=== PATIENT | female | born 1945 ===

== ENCOUNTER 2022-08-09 11:07 | Outpatient (REF) | payer MEDICARE, OTHER, SELFPAY | END 2022-08-09 11:08 | disposition home or self-care (01) | LOC: HO.SH 11:07 | PROVIDERS: Visit Provider Family Medicine | DX: H90.3 Sensorineural hearing loss, bilateral (principal) | CPT/HCPCS: 92557 ==

== ENCOUNTER 2022-09-04 14:23 | Outpatient (REF) | payer SELFPAY ==
--- NOTE | 2022-09-04 16:09 | MHC.AU.MED ---
Medical Clearance for Hearing Instrumentation Date: 09/04/22 Patient Name: Maia Siddiqui Date of : 1945 Primary Care Provider: Evert Brooke MD We have seen your patient on 09/04/22 and have determined that they are a candidate for amplification (See accompanying report). Specifically, they would benefit from: Hearing aid use in both ears There is a statute that addresses Medical Evaluation Requirements prior to fitting a patient with a hearing aid. According to [place] statute 265 CMR:6.03(1), (a) General. Except as provided in 265 CMR 6.03(1)(b), a jewel gauger shall not sell a hearing aid unless the prospective user has presented to the jewel gauger a written statement signed by a licensed physician that states that the patient's hearing loss has been medically evaluated and the patient may be considered a candidate for a hearing aid. The medical evaluation must have taken place within the preceding six months. Please note: Due to the [place] Statute referenced above, we cannot accept a signature other than that of a licensed physician. EMBEDDED PROCESSOR and PA signatures cannot be accepted. I am in agreement with the above recommendation. There is no medical contraindication for hearing instrumentation. Physician Signature Date Physician Name (Printed)
--- NOTE | 2022-09-05 11:25 | MHC.AU.HA1 ---
Hearing Aid Evaluation Date of Visit: 09/04/22 Historical Information: Description of Hearing: Right Ear - Within normal sloping to moderately-severe sensorineural hearing loss Left Ear - Mild sloping to moderately-severe sensorineural hearing loss Summary: Maia is accompanied by her . She is ready to pursue amplification due to increasing difficulty understanding full conversations. She is primarily home with her ; however, she also has an active social life. She often socializes with her extended family including her grandchildren, goes out to restaurants, attends dinner parties with about eight people and exercise classes with about 27 people. She also enjoys going to concerts and participates in Zoom meetings. Maia is interested in [employer]'s new Real hearing aids as recommended by her friend who is an rn neonatal in the [facility]. Hearing Aid Prescription: Based on the individual?s shared listening needs, communication environments, dexterity, desire for connectivity, and personal preferences, the following prescription for amplification has been made: Right ear: Make, Model, Color: Oticon Real 2 miniRITE-R Color: Silver Wright Battery Size: Rechargeable Ginning Operator/Slim Tube: 3/85 Type of Earmold/Dome/CShell/SlimTip: 8 mm double buck dome Left ear: Left ear prescription to be same as Right Hearing Aid above: Masoud Model, Color: Oticon Real 2 miniRITE-R Color: Silver Wright Battery Size: Rechargeable Ginning Operator/Slim Tube: 3/85 Type of Earmold/Dome/CShell/SlimTip: 8 mm double buck dome Plan of Care: Patient wishes to purchase hearing aids as prescribed Action Taken/Action Needed: Medical Clearance to be requested from PCP/ENT. Hearing Instrument Fitting to be scheduled when materials arrive Primary Diagnosis: H90.3 Bilateral Sensorineural Hearing Loss Signature: Provider: Acacai Daly, [facility]
== END 2022-09-04 14:24 | disposition home or self-care (01) ==
LOC: HO.HAP 14:23
PROVIDERS: Visit Provider Internal Medicine
DX: Z46.1 Encounter for fitting and adjustment of hearing aid (principal); H90.3 Sensorineural hearing loss, bilateral
CPT/HCPCS: 92590

== ENCOUNTER 2022-10-04 14:04 | Outpatient (REF) | payer SELFPAY ==
--- NOTE | 2022-10-04 16:39 | MHC.AU.HA2 ---
Hearing Instrument Fitting- Adult- Binaural Date of Visit: 10/04/22 Hearing Instruments Dispensed: Right Ear: Make, Model, Color, Serial Number: Oticon Real 2 miniRITE-R Color: Silver Wright [id number] Paper Cup Handle Machine Operator Repair Warranty: 10/07/2025 Paper Cup Handle Machine Operator Loss and Damage Warranty: 10/07/2025 [facility] Service Plan: 10/04/2025 Battery Size: Rechargeable Christmas Tree Grader/Slim Tube: 3/85 Earmold/Dome/CShell/SlimTip: 10mm open buck dome Type of Wax Guard: Prowax minifit Left Ear: Make, Model, Color, Serial Number: Oticon Real 2 miniRITE-R Color: Silver Wright [id number] Paper Cup Handle Machine Operator Repair Warranty: 10/07/2025 Paper Cup Handle Machine Operator Loss and Damage Warranty: 10/07/2025 [facility] Service Plan: 10/04/2025 Battery Size: Rechargeable Christmas Tree Grader/Slim Tube: 3/85 Earmold/Dome/CShell/SlimTip: 10mm open buck dome Type of Wax Guard: Prowax minifit Accessories/Assistive Technology: Smartcharger SN: [id number] (warranty 10/07/2025) Web Page Designer SN: [id number] (warranty 10/07/2025) Summary of Fitting: Maia is here for a hearing aid fitting, accompanied by her Tonio. The hearing aids were programmed to her most recent audiogram, on adaptation level 3, VAC+. Real ear measurements reveal the hearing aids are functioning and meeting targets appropriately. Maia reported a comfortable fit and good volume bilaterally. We discussed the adaptation period and the importance of consistent hearing aid use at length. Reviewed care and use of the hearing aids and chargers. Reviewed manuals. The patient was able to manipulate, insert and remove the hearing aids after some practice. She prefers to wait until her follow-up to pair her hearing aids to her iPhone. Reviewed the purchase agreement and provided the patient with a signed copy. $4,599 paid today (rechargeable hearing aids + service plan). A follow-up is scheduled. Diagnosis Code(s): Primary Diagnosis: H90.3 Bilateral Sensorineural Hearing Loss Signature: Provider: Cliff Charles, [facility]
== END 2022-10-04 14:05 | disposition home or self-care (01) ==
LOC: HO.HAP 14:04
PROVIDERS: Visit Provider Family Medicine
DX: Z46.1 Encounter for fitting and adjustment of hearing aid (principal); H90.3 Sensorineural hearing loss, bilateral
CPT/HCPCS: V5261; V5299

== ENCOUNTER 2022-10-26 10:51 | Outpatient (REF) | payer SELFPAY ==
--- NOTE | 2022-10-26 14:09 | MHC.AU.HFU ---
Hearing Instrument Follow-Up- Binaural Date of Visit: 10/26/22 Right Ear: Oticon Real 2 miniRITE-R Color: Silver Wright [id number] Repair Warranty: 10/07/2025 Loss and Damage Warranty: 10/07/2025 Service Plan: 10/04/2025 Battery Size: Rechargeable Torch Straightener: 385 Type of Dome: 10mm open buck dome Type of Wax Guard: Prowax minifit Dispensed By: [facility] Date of Fittin10/04/2022 Left Ear: Oticon Real 2 miniRITE-R Color: Silver Wright [id number] Repair Warranty: 10/07/2025 Loss and Damage Warranty: 10/07/2025 Service Plan: 10/04/2025 Battery Size: Rechargeable Torch Straightener: Type of Dome: 10mm open buck dome Type of Wax Guard: Prowax minifit Dispensed By: [facility] Date of Fittin10/04/2022 Follow-Up Summary: Maia was seen today for a hearing aid check following her hearing aid fitting. She is accompanied by her . Maia reports improved hearing and is very happy with her hearing aids. No retention issues reported. She did have a few instances where having a volume control would have been helpful, like when she went to [employer] and the child day care teacher was too loud and when she went to a [employer] and the music was too loud. She also notes the microwave ding is rather loud at home. Maia prefers to have the volume control enabled on her hearing aids as she does not want them paired to her iPhone yet. In Genie[employer] I enabled volume control, increased easy noise suppression and increased sudden sound stabilizer. I spent time reviewing use of the volume control, which we practiced in office and she was able to manipulate with ease. We also spent time reviewing hearing aid cleaning and changing the domes/wax guards. Maia mentioned she may have scratched her left ear canal as she noted some blood on a Qtip. Otoscopy reveals a scab in the left ear canal which seems to be healing. She inquired about purchasing a TV adaptor (version 3). I encouraged her to try her new hearing aid settings and volume control before making a decision. Quoted $220 for the TV adaptor. She will call if she wants to order it. She prefers to contact our clinic for additional follow-up as needed. Recommended annual audiogram and hearing aid check. Diagnosis Code(s): Primary Diagnosis: H90.3 Bilateral Sensorineural Hearing Loss Signature: Provider: Cliff Charles, CCC-A
== END 2022-10-26 10:52 | disposition home or self-care (01) ==
LOC: HO.HAP 10:51
PROVIDERS: Visit Provider Family Medicine
DX: Z13.89 Encounter for screening for other disorder (principal)

== ENCOUNTER 2024-09-22 09:42 | Outpatient (REF) | payer MEDICARE, OTHER, SELFPAY | END 2024-09-22 09:43 | disposition home or self-care (01) | LOC: HO.SH 09:42 | PROVIDERS: Visit Provider Family Medicine | DX: Z01.118 Encounter for examination of ears and hearing with other abnormal findings (principal); H90.3 Sensorineural hearing loss, bilateral | CPT/HCPCS: 92557 ==

== ENCOUNTER 2024-09-22 09:45 | Outpatient (REF) | payer SELFPAY ==
--- OUTSIDE RECORDS SUMMARY | 2024-09-23 12:01 | XMS_ITS | Patient Health Record ---
Author Organization [facility] Address [address] [place] [address] Care Team Providers Care Shipping And Receiving Operator Name Role Phone Aries Sibley MD Primary Care Provider Ninoska Garcia Unavailable [phone] Allergies Allergen (clinical drug ingredient) Drug/Non Drug Allergy documented on EMR Reaction Allergy Type Onset Date Status cefaclor ceclor (uncoded) itching Allergy Act vasu sulfamethoxazole / trimethoprim Bactrim hives, swelling Drug Allergy Active Ceftin itching Drug Allergy Active Keflex itching Drug Allergy Active gabapentin Neurontin twitching Drug Allergy Active cephalexin Cephalexin itching Drug Allergy Activ e Reason For Referral No Information Medications Medication SIG (Take, Route, Frequency, Duration) Notes Start Date End Date Status Vitamin D3 Active Calcium Citrate Acti ve Multivitamin Active Aspirin Active Ibuprofen Active Sertraline HCl Activ e Turmeric Active Irbesartan 75 MG 1 tablet Orally Active Loratadine Active Simvastatin 40 MG 1 tablet in the evening Orally Once a day for 30 day(s) Active Fish Oil Active Reclast Active Amoxicillin PRN for dental apts Active ALPRAZolam 0.25 MG 1 tablet Orally Twice a day PRN Active L-Methylfolate 15 MG 1 tablet Orally Once a day for 30 day(s) Active Curcumin 95 Active Vitamin D Not-Taking Immunizations Vaccine Route Administration Date Status Comme nts COVID-19 Pfizer BioNTech Vaccine Unknown 08/03/2020 Administered Second Dose: 08/24/2020 Social History Tobacco Use: Social History Observation Description Date Details (start date - stop date) Never Smoker NA - NA Tobacco Use/Smoking Question Answer Notes Are you a: nonsmoker Additional Findings: Tobacco Non-User Current no n-smoker Alcohol Screen Question Answer Notes Did you have a drink containing alcohol in the p ast year? Yes Points 0 Interpretation Negative Tobacco use other than smoking: Question Answer Notes Are you an other tobacco user? No Problems Problem Type SNOMED Code ICD Code Onset Dates Problem Status W/U Status Risk Notes Problem [id number] Hallux valgus (acquired), right foot (M20.11) Active confirmed Problem 148313383 Hammer toe of right foot (M20.41) Active confirmed Plan Of Treatment Pending Test Test Name Order Date X ray : Foot, right 3V 10/15/2020 Insurance Providers Payer Name Payer Address Payer Phone Subscriber Number Group Number Insured Name Patient Relationship to Insured Coverage Start Date Coverage End Date Medicare National Govt [employer] [address] [place] [address] [id number] Maia Siddiqui Self - patient is the insured [facility] [address] [place] [phone] [id number] Maia Siddiqui Self - patient is the insured Medical (General) History Medical History History ICD Code Anxiety Arthritis Back,Hip,and Knee pain Broken bones Cancer Depression High blood pressure Osteoporosis Measles Mumps Chicken pox Joint implants/screws Cholesterol Lymphedema, axilla vascular insufficiency Varicose veins Compression stockings, 20-30 Surgical History Surgery Date(Month/Year) left knee replacement 03/2018 right knee replacement 09/2017 endovenous laser treatments 2018 lumpectomy, right 2009 cataracts 2009 lumpectomy, left 1988
--- OUTSIDE RECORDS SUMMARY | 2024-09-23 12:01 | XMS_ITS | Continuity of Care Document ---
Author Organization [facility] Address [address] [place] [address]- Care Team Providers Care Field Laborer Name Role Phone Maryjo COELLO, Aries Lauren Primary Care Physician En[place] [facility] Date(s): 08/20/24 - 09/19/24 [facility] Adult [address] [place] [address]- Encounter Type: Triage Allergies, Adverse Reactions, Alerts Substance Criticality Severity Reaction Reaction Severity Status ciprofloxacin Itching Rash Active sulfADIAZINE Swelling Hives Active cephalexin RASH Active lisinopril Cough Active gabapentin Active Macrobid Active Macrodantin Active Flonase Rash Itching Active Indocin Active Clinoril SIMPSON - Headache Active Levaquin Active Tolectin 600 Active Prevnar fever Active Immunizations Given and Recorded Vaccine Date Status Refusal Reason RSV vaccine, preF A-preF B, recombinant 03/02/24 R ecorded influenza virus vaccine, inactivated 03/02/24 Bhavesh rded influenza virus vaccine, inactivated 1 05/18/23 Gi maddie influenza virus vaccine, inactivated 04/28/22 Bhavesh rded influenza virus vaccine, inactivated 04/17/21 Bhavesh rded influenza virus vaccine, inactivated 03/27/20 Bhavesh rded influenza virus vaccine, inactivated 2 03/08/18 Re corded influenza virus vaccine, inactivated 3 03/08/18 Re corded influenza virus vaccine, inactivated 4 04/10/17 Gi maddie influenza virus vaccine, inactivated 05/20/16 Bhavesh rded influenza virus vaccine, inactivated 5 04/15/16 Re corded influenza virus vaccine, inactivated 05/25/14 Bhavesh rded influenza virus vaccine, inactivated 05/24/13 Bhavesh rded influenza virus vaccine, inactivated 04/15/13 Bhavesh rded influenza virus vaccine, inactivated 04/11/11 Give n influenza virus vaccine, inactivated 04/05/10 Give n influenza virus vaccine, inactivated 04/06/09 Give n influenza virus vaccine, inactivated 6 04/12/08 Gi maddie SARS-CoV-2(COVID-19)mRNA-LNP vac([id number]) 03/02/24 Recorded SARS-CoV-2(COVID-19)mRNA-LNP vac([id number]) 03/25/23 Recorded [id number] bivalent booster vax 10/22/22 Recorded [id number] bivalent booster vax 03/13/22 Recorded SARS-CoV-2 mRNA ([id number]) vax 10/29/21 Recorded SARS-CoV-2 (COVID-19) mRNA BNT-162b2 vac 04/03/21 Recorded SARS-CoV-2 (COVID-19) mRNA BNT-162b2 vac 08/24/20 Given SARS-CoV-2 (COVID-19) mRNA BNT-162b2 vac 08/03/20 Recorded Influenza Virus Vaccine (oldterm) 04/29/19 Recorde d zoster vaccine, inactivated 12/28/18 Recorded zoster vaccine, inactivated 12/10/18 Recorded zoster vaccine, inactivated 09/09/18 Recorded Influenza Vaccine (oldterm) 7 04/03/15 Recorded pneumococcal 13-valent vaccine 02/12/15 Given tetanus/diphtheria/pertussis, acel(Tdap) 8 10/28/12 Given FluLaval (oldterm) 9 04/29/12 Given Zoster Vaccine Live 01/31/12 Recorded Pneumococcal Vaccine (oldterm) 10 05/02/03 Given tetanus-diphtheria toxoids (Td) 11 04/02/02 Given 1Result Comment: QUESTIONAIRE COMPLETE 2[facility] 4Result Comment: [04/10/2017] [facility] [phone] 5Location History: pharmacy 6Admin Note: nadia ceja 7[facility] History[facility] 8Admin Note: Gave the VIS 07-25-2011 9Admin Note: Gave the VIS 01-01-2012 10[facility] 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[employer] Medications acetaminophen 500 mg oral capsule 2 capsule, By Mouth, 4 times a day, PRN as needed for fever/pain, 0 Refills, Maintenance, 10/04/10 4:01:05 PM EDT, Capsule Start Date: 10/04/10 Status: Ordered Repeat number: 1 alendronate 70 mg oral tablet 1 tablet = 70 mg, By Mouth, Every week, with 6-8 oz plain water, at least 30 minutes before first food, beverage, or medication of the day, # 12 tablet, 3 Refills, Maintenance, 12/04/23 10:01:00 AM EDT, Tablet, [facility]/pharmacy #[id number], 153.5, cm, 12/04/23 9:36:00 EDT, Height, 79, kg, 09/19/22 13:01:00 EDT, Dry Weight Start Date: 12/04/23 Status: Ordered Quantity: 12.0 Unit: tablet Repeat number: 4 Indication: Age-related osteoporosis without current pathological fracture ALPRAZolam 0.5 mg oral tablet 15 each, 0 Refill(s), TAKE 1/2 A TABLET BY MOUTH AT BEDTIME NEEDED, Refills 0, 12/04/23 9:43:00 AMEDT, Partial fill upon patient request if the prescription is for a schedule II opioid drug. Start Date: 12/04/23 Status: Ordered Repeat number: 1 aspirin 81 mg oral enteric coated tablet 81 mg, 1, tablet, By Mouth, Daily, 0 Refills Start Date: 06/01/06 Status: Ordered Repeat number: 1 Benefiber oral powder for reconstitution 5 mL, By Mouth, 2 times a day, PRN as needed for constipation, # 155 Gm, 0 Refills, Maintenance, 10/31/21 3:17:00 PM EDT, REC Powder, Partial fill upon patient request if the prescription is for a schedule II opioid drug. Start Date: 10/31/21 Status: Ordered Quantity: 155.0 Unit: g Repeat number: 1 calcium (as carbonate and lactate)-vitamin D 200 mg-250 intl units oral tablet, chewable 1 tablet, Chew, Daily, # 100 tablet, 0 Refills, Maintenance, 07/26/17 1:18:26 PM EST, Chew Tablet Start Date: 07/26/17 Status: Ordered Quantity: 100.0 Unit: tablet Repeat number: 1 Cholecalciferol oral, 0 Refill(s), Take by mouth., 0 Refills, 12/04/23 9:43:00 AM EDT, Partial fill upon patient request if the prescription is for a schedule II opioid drug. Start Date: 12/04/23 Status: Ordered Repeat number: 1 cholecalciferol 1000 intl units oral capsule 2000 Unknown, oral, 0 Refill(s), Take 2 capsules (2,000 Units total) by mouth., 0 Refills, 12/04/23 9:43:00 AM EDT, Partial fill upon patient request if the prescription is for a schedule II opioid drug. Start Date: 12/04/23 Status: Ordered Repeat number: 1 Collagen 0 Refills, Maintenance, 05/31/23 10:01:00 AM EST, Partial fill upon patient request if the prescription is for a schedule II opioid drug. Start Date: 05/31/23 Status: Ordered Repeat number: 1 Deplin 15 mg oral capsule 1 capsule = 15 mg, By Mouth, Daily, 0 Refills, Maintenance, 08/20/15 1:18:42 PM EST Start Date: 08/20/15 Status: Ordered Repeat number: 1 dexamethasone-tobramycin 0.1%-0.3% ophthalmic suspension 5 mL, 0 Refill(s), INSTILL 1 DROP INTO BOTH EYES FOUR TIMES A DAY USE FOR 2 WEEKS THEN STOP, 0 Refills, 12/04/23 9:43:00 AM EDT, Partial fill upon patient request if the prescription is for a schedule II opioid drug. Start Date: 12/04/23 Status: Ordered Repeat number: 1 Fish Oil 1000 mg oral capsule 1 capsule = 1,000 mg, By Mouth, Daily, Maintenance, 10/31/21 1:58:00 PM EDT, Capsule, Partial fill upon patient request if the prescription is for a schedule II opioid drug. Start Date: 10/31/21 Status: Ordered Repeat number: 1 irbesartan 75 mg oral tablet 1 tablet, By Mouth, Daily, # 90 tablet, 3 Refills, Maintenance, 01/25/24 4:45:00 AM EDT, [facility], 153.5, cm, 01/15/24 16:27:00 EDT, Height, 79, kg, 09/19/22 13:01:00 EDT, Dry Weight Start Date: 01/25/24 Status: Ordered Quantity: 90.0 Unit: tablet Repeat number: 4 loratadine 10 mg oral tablet 10 mg, 1, tablet, By Mouth, Daily, PRN, Refills 0, Maintenance, allergy symptoms, 10/31/21 1:56:00 PMEDT, Partial fill upon patient request if the prescription is for a schedule II opioid drug. Start Date: 10/31/21 Status: Ordered Repeat number: 1 sertraline 100 mg oral tablet 1.5 tablet = 150 mg, By Mouth, Daily, 135 each, 0 Refill(s), TAKE 1 AND A HALF TABLETS BY MOUTH EVERY DAY, # 135 tablet, 3 Refills, Maintenance, 06/30/24 11:41:00 AM EST, Tablet, [facility], Partial fill upon patient request if the prescription is for a schedule II opioid drug., 161.2, cm, 06/30/24 11:17:00 EST, Height, 79, kg, 09/19/22 13:01:00 EDT, Dry Weight Start Date: 06/30/24 Stop Date: 06/25/25 Status: Ordered Quantity: 135.0 Unit: tablet Repeat number: 4 simvastatin 40 mg oral tablet 1, tablet, By Mouth, Daily at bedtime, # 90 tablet, Refills 3, Tot. Refills 3, Maintenance, 06/30/24 11:48:00 AM EST, Route to Pharmacy Electronically, [facility], 161.2, cm, 06/30/24 11:17:00 EST, Height, 79, kg, 09/19/22 13:01:00 EDT, Dry Weight Start Date: 06/30/24 Status: Ordered Quantity: 90.0 Unit: tablet Repeat number: 4 topiramate 25 mg oral tablet 1 tablet = 25 mg, By Mouth, Daily at bedtime, Replaces previous prescription, # 90 tablet, 3 Refills, Maintenance, 09/24/24 6:06:00 AM EDT, Tablet, [facility]/pharmacy #[id number], Partial fill upon patient request if the prescription is for a schedule II opioid drug., 161.2, cm, 06/30/24 11:17:00 EST, Height, 79, kg, 09/19/22 13:01:00 EDT, Dry Weight Start Date: 09/24/24 Status: Ordered Quantity: 90.0 Unit: tablet Repeat number: 4 topiramate 50 mg oral tablet 1 tablet = 50 mg, By Mouth, Daily, # 30 tablet, 5 Refills, Maintenance, 01/24/24 4:25:00 PM EDT, [facility]/pharmacy #[id number], Partial fill upon patient request if the prescription is for a schedule II opioid drug., 153.5, cm, 01/15/24 16:27:00 EDT, Height, 79, kg, 09/19/22 13:01:00 EDT, Dry Weight Start Date: 01/24/24 Status: Ordered Quantity: 30.0 Unit: tablet Repeat number: 6 turmeric 500 mg oral capsule 1 capsule = 500 mg, By Mouth, Daily, 0 Refills, Maintenance, 12/30/21 10:14:00 AM EDT, Partial fill upon patient request if the prescription is for a schedule II opioid drug. Start Date: 12/30/21 Status: Ordered Repeat number: 1 Vitamin B12 1000 mcg oral tablet 1 tablet = 1,000 mcg, By Mouth, Daily, 0 Refills, Maintenance, 06/30/24 11:10:00 AM EST, Partial fill upon patient request if the prescription is for a schedule II opioid drug. Start Date: 06/30/24 Status: Ordered Repeat number: 1 Vitamin D3 1000 intl units oral capsule 1 capsule = 25 mcg, By Mouth, Daily, 0 Refills, Maintenance, 12/30/21 10:13:00 AM EDT, Partial fill upon patient request if the prescription is for a schedule II opioid drug. Start Date: 12/30/21 Status: Ordered Repeat number: 1 Problem List Condition Confirmation Course Effective Dates Status Health Status Informant Back pain chronic Confirmed Active Bursitis of hip Confirmed Active CXR - Chest calcified lymph nodes consistent x/ old granulomatous dz Confirmed 2000 Active Depression Confirmed Active Fatty liver Confirmed Active Heart murmur Confirmed Active Hemorrhoids Confirmed Active Personal history of breast cancer 1 Confirmed Active Hypercholesterolemia Confirmed Active Hypertension Confirmed Active Impaired fasting glucose Confirmed Active Osteoarthrosis, localized, primary, knee Confirmed Active Lymphedema right arm and right chest wall s/p treatment for breast cancer Confirmed Active Obese class I Confirmed Active Onychomycosis Confirmed Active Osteoporosis Confirmed Active Bilateral breast cancer Confirmed Active Seasonal allergic rhinitis Confirmed Active Vertigo Confirmed Active 1lumpectomy 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 RN Member Role: Primary Care Nurse Name: Aries Sibley MD Position: [facility] Physician - Primary Care Member Role: PCP Address: [address] [place] [address]- Telecom: Name: Melissa Stevens RN Position: [facility] Nurse Member Role: Primary Care Nurse Name: Benjamin Ramirez RN Position: [facility] RN Member Role: Primary Care Nurse Care Team Related Persons Name: DEBORAH SEVERINO Name: SAÚL PEREZ Name: NANCI SANTIAGO Insurance Providers Guarantor name: ANITHA CHRIS Health Plan Information #: 1 Payer: MEDICARE PART B OUTPT Member Number: NA Policy Number: NA Group Number: NA Health Plan Information #: 2 Payer: [facility] Member Number: NA Policy Number: NA Group Number: NA
--- OUTSIDE RECORDS SUMMARY | 2024-09-23 12:02 | XMS_ITS | Continuity of Care Document ---
Author Organization [facility] Address [address] [place] [address]- Care Team Providers Care Iron Worker Apprentice Name Role Phone Maryjo COELLO, Aries Lauren Primary Care Physician Encounter [facility] Date(s): 08/13/24 - 09/12/24 [facility] Adult [address] [place] [address]- Encounter Type: Triage Allergies, Adverse Reactions, Alerts [...] vaccine, inactivated 6 04/12/08 Gi maddie SARS-CoV-2(COVID-19)mRNA-LNP vac([id number]) 03/02/24 Recorded SARS-CoV-2(COVID-19)mRNA-LNP vac(ohp596) 03/25/23 Recorded [id number] bivalent booster vax 10/22/22 Recorded CNTN-WkW-2bAKL-1273 bivalent booster vax 03/13/22 Recorded SARS-CoV-2 mRNA (pciywrk-qkxb-jvbal) vax 10/29/21 Recorded SARS-CoV-2 (COVID-19) mRNA BNT-162b2 [...] [facility] 4Result Comment: [04/10/2017] [facility] [id number] 5Location History: pharmacy 6Admin Note: nadia ceja 7Location History: [facility] 8Admin Note: Gave the VIS 07-25-2011 9Admin Note: Gave the VIS 01-01-2012 10[facility] 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[employer] Medications acetaminophen 500 mg oral capsule 2 [...] Refills, Maintenance, 12/04/23 10:01:00 AM EDT, Tablet, [facility]/pharmacy #[id number], 153.5, cm, 12/04/23 9:36:00 EDT, Height, [...] Refills, Maintenance, 01/25/24 4:45:00 AM EDT, [facility], 153.5, cm, 01/15/24 16:27:00 EDT, [...] Refills, Maintenance, 06/30/24 11:41:00 AM EST, Tablet, [facility], Partial fill upon patient request if [...] 11:48:00 AM EST, Route to Pharmacy Electronically, [facility], 161.2, cm, 06/30/24 11:17:00 EST, Height, 79, kg, 09/19/22 13:01:00 EDT, Dry Weight Start Date: 06/30/24 Status: Ordered Quantity: 90.0 Unit: tablet Repeat number: 4 topiramate 25 mg oral tablet 1 tablet = 25 mg, By Mouth, Daily at bedtime, Replaces previous prescription, # 90 tablet, 3 Refills, Maintenance, 09/24/24 6:06:00 AM EDT, Tablet, [facility]/pharmacy #[id number], Partial fill upon patient request if [...] 5 Refills, Maintenance, 01/24/24 4:25:00 PM EDT, [facility]/pharmacy #[id number], Partial fill upon patient request if [...] Team Personnel Name: Annetta Portillo RN Position: [facility] RN Member Role: Primary Care Nurse Name: Aries Sibley MD Position: [facility] Physician - Primary Care Member Role: PCP Address: [address] [place] [address]- Telecom: Name: Melissa Stevens RN Position: [facility] Nurse Member Role: Primary Care Nurse Name: Benjamin Ramirez RN Position: [facility] RN Member Role: Primary Care Nurse Care Team Related Persons Name: DEBORAH SEVERINO Name: SAÚL PEREZ Name: NANCI SANTIAGO Insurance Providers Guarantor name: ANITHA CHRIS Health Plan Information #: 1 Payer: MEDICARE PART B OUTPT Member Number: NA Policy Number: NA Group Number: NA Health Plan Information #: 2 Payer: [facility] Member Number: NA Policy Number: NA Group Number: NA
--- OUTSIDE RECORDS SUMMARY | 2024-09-23 12:02 | XMS_ITS | Continuity of Care Document ---
Author Organization [facility] Address [address] [place] [address]- Care Team Providers Care Automatic Print Developer Name Role Phone Maryjo COELLO, Aries Lauren Primary Care Physician [place] [facility] [place] 08/14/24 - 09/13/24 [facility] Adult [address] [place] [address]- Encounter Type: Triage Allergies, Adverse Reactions, Alerts Substance Criticality Severity Reaction Reaction Severity Status ciprofloxacin Itching Rash Active cephalexin RASH Active sulfADIAZINE Swelling Hives Active lisinopril Cough Active gabapentin Active Macrobid [...] vaccine, inactivated 6 04/12/08 Gi maddie SARS-CoV-2(COVID-19)mRNA-LNP vac([id number]) 03/02/24 Recorded SARS-CoV-2(COVID-19)mRNA-LNP vac(one243) 03/25/23 Recorded [id number] bivalent booster vax 10/22/22 Recorded PHZY-UaY-[id number]-1273 bivalent booster vax 03/13/22 Recorded SARS-CoV-2 mRNA (fravzmi-qlep-ijgbx) vax 10/29/21 Recorded SARS-CoV-2 (COVID-19) mRNA BNT-162b2 [...] [facility] 4Result Comment: [04/10/2017] [facility] [id number] 5Location History: pharmacy 6Admin Note: nadia ceja 7Location History: [facility] 8Admin Note: Gave the VIS 07-25-2011 9Admin Note: Gave the VIS 01-01-2012 10[facility] 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[employer] 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 acetaminophen 500 mg oral capsule 2 [...] Refills, Maintenance, 12/04/23 10:01:00 AM EDT, Tablet, [facility]/pharmacy #[id number], 153.5, cm, 12/04/23 9:36:00 EDT, [...] Refills, Maintenance, 01/25/24 4:45:00 AM EDT, [facility], 153.5, cm, 01/15/24 16:27:00 EDT, [...] Refills, Maintenance, 06/30/24 11:41:00 AM EST, Tablet, [facility], Partial fill upon patient request if [...] 11:48:00 AM EST, Route to Pharmacy Electronically, [facility], 161.2, cm, 06/30/24 11:17:00 EST, Height, 79, kg, 09/19/22 13:01:00 EDT, Dry Weight Start Date: 06/30/24 Status: Ordered Quantity: 90.0 Unit: tablet Repeat number: 4 topiramate 25 mg oral tablet 1 tablet = 25 mg, By Mouth, Daily at bedtime, Replaces previous prescription, # 90 tablet, 3 Refills, Maintenance, 09/24/24 6:06:00 AM EDT, Tablet, [facility]/pharmacy #[id number], Partial fill upon patient request [...] 5 Refills, Maintenance, 01/24/24 4:25:00 PM EDT, [facility]/pharmacy #[id number], Partial fill upon patient request [...] Team Personnel Name: Annetta Portillo RN Position: [facility] RN Member Role: Primary Care Nurse Name: Aries Sibley MD Position: [facility] Physician - Primary Care Member Role: PCP Address: [address] [place] [address]- Telecom: Name: Melissa Stevens RN Position: [facility] Nurse Member Role: Primary Care Nurse Name: Benjamin Ramirez RN Position: [facility] RN Member Role: Primary Care Nurse Care Team Related Persons Name: DEBORAH SEVERINO Name: SAÚL PEREZ Name: NANCI SANTIAGO Insurance Providers Guarantor name: ANITHA CHRIS Health Plan Information #: 1 Payer: MEDICARE PART B OUTPT Member Number: NA Policy Number: NA Group Number: NA Health Plan Information #: 2 Payer: [facility] Member Number: NA Policy Number: NA Group Number: NA
--- OUTSIDE RECORDS SUMMARY | 2024-09-23 12:02 | XMS_ITS | Clinical Summary ---
Author Organization [facility] Address [address] [place] [address] Care Team Providers Care Cash Register Balancer Name Role Phone Gaston Burton MD Primary Care Provider [phone] Allergies Active Allergy Reactions Criticality Noted Date Comments Elemental Sulfur Anaphylaxis High 09/06/2016 Fluticasone Propionate Hives Medium 09/06/2016 Lisinopril Rash/Dermatitis Low 09/06/2016 Nitrofurantoin Macrocrystal Swelling Medium 09/07/19 17 Nitrofurantoin Monohyd Macro Swelling Medium 017 Ofloxacin Hives Medium 09/06/2016 Tolmetin Hives Medium 09/06/2016 Medications Medication Sig Dispensed Refills Start Date End Date Status gabapentin (NEURONTIN) 100 MG capsule 300 mg 2 (two) times a day. 08/31/2016 Active sertraline (ZOLOFT) 100 MG tablet 07/11/2016 Active simvastatin (ZOCOR) 40 MG tablet 07/11/2016 Active irbesartan (AVAPRO) 75 MG tablet 06/11/2016 Active loratadine (CLARITIN) 10 MG tablet Take 10 mg by mouth daily. Active U-Tpkszshwpfje-Aaqyq (DEPLIN 15 PO) Take by mouth. Active aspirin enteric coated (ECOTRIN LOW STRENGTH) 81 MG EC tablet Take 81 mg by mouth daily. Active Active Problems Problem Noted Date Diagnosed Date Hx of malignant neoplasm of breast 09/06/2016 Family History Medical History Relation Name Comments Breast cancer Maternal Aunt Stomach cancer Maternal Aunt Relation Name Status Comments Maternal Aunt Social History Tobacco Use Types Packs/Day Years Used Date Smoking Tobacco: Never Alcohol Use Standard Drinks/Week Comments Yes 0 (1 standard drink = 0.6 oz pur e alcohol) Sex and Gender Information Value Date Recorded Sex Assigned at Not on file Gender Identity Not on file Sexual Orientation Not on file Last Filed Vital Signs Vital Sign Reading Time Taken Comments Blood Pressure - - Pulse - - Temperature - - Respiratory Rate - - Oxygen Saturation - - Inhaled Oxygen Concentration - - Weight - - Height 165.1 cm (5' 5 ) 09/06/2016 11:12 AM EST Body Mass Index - - Plan of Treatment Health Maintenance Due Date Last Done Comments DTaP/Tdap/Td Vaccines (1 - Tdap) 02/25/1963 Pneumococcal Vaccines 50+ (1 of 1 - PCV) 02/25/1994 Zoster (Shingles) Vaccine (1 of 2) 02/25/1994 DXA Bone Density (Females,Ag es 65 and older) 02/25/2009 RSV Vaccine 60 years and old er and Patients (1 - 1-dose 75+ series) 02/25/2019 Influenza Vaccine 01/31/2024 COVID-19 Vaccine ( - 2023-2 5 season) 2024 Hepatitis B Vaccines Aged Out No long er eligible based on patient's age to complete this topic Care Teams Cash Register Balancer Relationship Specialty Start Date End Date Gaston Burton MD [address] [place] [address] PCP - General Radiation Oncology 09/04/16
--- OUTSIDE RECORDS SUMMARY | 2024-09-23 12:02 | XMS_ITS | Clinical Summary ---
Author Organization [facility] Address [address] [place] [address] Care Team Providers Care Instructional Technology Specialist Name Role Phone Aries Sibley MD Primary Care Provider [phone] Allergies Active Allergy Reactions Criticality Noted Date Comments Cephalexin 06/14/2022 Sulindac 06/06/2018 Fluticasone 06/06/2018 Gabapentin 06/14/2022 Indomethacin 06/06/2018 Lisinopril 06/06/2018 Sulfa Antibiotics 06/06/2018 Tolmetin 06/06/2018 Medications Medication Sig Dispensed Refills Start Date End Date Status acetaminophen (TYLENOL) 500 MG tablet Take by mouth every 6 (six) hours as needed. 0 Active simvastatin (ZOCOR) tablet 40 mg Take 1 tablet (40 mg total) by mouth every night at bedtime. 0 Active Multiple Vitamins-Minerals (MULTIVITAMIN PO) Take by mouth. 0 Act vasu Hamilton-3 Fatty Acids (FISH OIL) 1000 MG CAPS Take 1,000 mg by mouth daily. 0 Active aspirin EC 81 MG tablet Take 1 tablet (81 mg total) by mouth daily. 0 Active sertraline (ZOLOFT) 100 MG tablet Take 1 tablet (100 mg total) by mouth daily. 150 mg 0 Active Calcium Carb-Cholecalciferol (CALCIUM-VITAMIN D) 600-400 MG-UNIT TABS Take by mouth. 0 Active irbesartan (AVAPRO) 75 MG tablet Take 1 tablet (75 mg total) by mouth every night at bedtime. 0 Active Cholecalciferol (VITAMIN D-3) 1000 units CAPS Take 2,000 Units by mouth. 0 Active Y-Ceeodzhbjsle-Uhdly (DEPLIN 15 PO) Take by mouth. 0 Active Turmeric (CURCUMIN 95) 500 MG CAPS Take by mouth. 0 Active naproxen sodium (ALEVE) 220 MG tablet Take 1 tablet (220 mg total) by mouth 2 (two) times a day with meals. 0 Active ALPRAZolam (XANAX) 0.25 MG tablet Take 1 tablet (0.25 mg total) by mouth every night at bedtime as needed for anxiety. 0 Active romosozumab-aqqg (Evenity) 105 MG/1.17ML SOSY injection Inject 2.34 mL (210 mg total) under the skin once. 0 Active Emollient (COLLAGEN EX) Apply topically. 0 Active topiramate (TOPAMAX) 25 MG tablet Take 1 tablet (25 mg total) by mouth every night at bedtime. 0 Active COLLAGEN PO Take by mouth. 0 Active alendronate (FOSAMAX) tablet 70 mg Take 1 tablet (70 mg total) by mouth every 7 days. Take with water on empty stomach/Nothing by mouth and do not lie down for next 30 minutes 0 Active Active Problems Problem Noted Date Diagnosed Date Malignant neoplasm of overla pping sites of left female breast 06/07/2018 Social History Tobacco Use Types Packs/Day Years Used Date Smoking Tobacco: Never Smokeless Tobacco: Never Alcohol Use Standard Drinks/Week Comments Yes 1 (1 standard drink = 0.6 oz pur e alcohol) socially Sex and Gender Information Value Date Recorded Sex Assigned at Not on file Gender Identity Not on file Sexual Orientation Not on file Job Start Date Occupation Industry Not on file Not on file Not on file Last Filed Vital Signs Vital Sign Reading Time Taken Comments Blood Pressure 127/76 12/14/2023 11:51 AM EDT Pulse 72 12/14/2023 11:51 AM EDT Temperature 36.9 ??C (98.4 ??F) 12/14/2023 11:51 AM E DT Respiratory Rate - - Oxygen Saturation 98% 12/14/2023 11:51 AM EDT Inhaled Oxygen Concentration - - Weight 79.5 kg (175 lb 3.2 oz) 12/14/2023 11:51 AM EDT Height 160 cm (5' 3 ) 12/14/2023 11:51 AM EDT Body Mass Index 31.04 12/14/2023 11:51 AM EDT Plan of Treatment Health Maintenance Due Date Last Done Comments Depression Screening 1957 Preventative Health Evaluation 02/25/1962 DTap / Tdap / Td (1 - Tdap) 04/03/2002 04/02/2002 Fall Risk Assessment 02/25/2009 Osteoporosis Screening (DEXA Scan) 02/25/2009 Pneumococcal Vaccine (3 of 3 - PPSV23 or PCV20) 04/09/2015 02/12/2015, 05/02/2003 RSV Adult > 60+ Yrs or (1 - 1-dose 75+ series) 02/25/2019 COVID-19 Vaccine ( - season) 2024 03/25/2023, 10/29/2021, 04/03/2021, Additional history exists Influenza Vaccine (#1) 2024 , 04/28/2022, 04/17/2021, Additional history exists Shingrix-Zoster Vaccine Completed 12/29/19, 12/10/2018, 09/09/2018 Hepatitis B Vaccines Aged Out No long er eligible based on patient's age to complete this topic RSV Ped < 20 months Aged Out No longe r eligible based on patient's age to complete this topic Care Teams Instructional Technology Specialist Relationship Specialty Start Date End Date Aries Sibley MD [facility] [address] [place] [address] PCP - General Family Medicine 06/07/18
--- OUTSIDE RECORDS SUMMARY | 2024-09-23 12:02 | XMS_ITS | Continuity of Care Document ---
Author Organization [facility] Address [address] [place] [address]- Care Team Providers Care Circuit Manager Name Role Phone Maryjo COELLO, Aries Lauren Primary Care Physician [phone] [place] [facility] [place] Date(s): 08/20/24 - 09/19/24 [facility] Adult [address] [place] [address]- Encounter Type: Triage Allergies, Adverse Reactions, Alerts [...] vaccine, inactivated 6 04/12/08 Gi maddie SARS-CoV-2(COVID-19)mRNA-LNP vac([id number]) 03/02/24 Recorded SARS-CoV-2(COVID-19)mRNA-LNP vac(fkf235) 03/25/23 Recorded [id number] bivalent booster vax 10/22/22 Recorded [id number]-[id number]-1273 bivalent booster vax 03/13/22 Recorded SARS-CoV-2 mRNA (iilfjhq-jmdt-hwgzp) vax 10/29/21 Recorded SARS-CoV-2 (COVID-19) mRNA BNT-162b2 [...] [facility] 3[facility] 4Result Comment: [04/10/2017] [facility] [id number] 5Location History: pharmacy 6Admin Note: nadia ceja 7Location History: [facility] 8Admin Note: Gave the VIS 07-25-2011 9Admin Note: Gave the VIS 01-01-2012 10Admin Note: [facility] 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[employer] Medications acetaminophen 500 mg oral capsule 2 [...] Refills, Maintenance, 12/04/23 10:01:00 AM EDT, Tablet, [facility]/pharmacy #[id number], 153.5, cm, 12/04/23 9:36:00 EDT, Height, [...] Refills, Maintenance, 01/25/24 4:45:00 AM EDT, [facility], 153.5, cm, 01/15/24 16:27:00 EDT, [...] Refills, Maintenance, 06/30/24 11:41:00 AM EST, Tablet, [facility], Partial fill upon patient request if [...] 11:48:00 AM EST, Route to Pharmacy Electronically, [facility], 161.2, cm, 06/30/24 11:17:00 EST, Height, 79, kg, 09/19/22 13:01:00 EDT, Dry Weight Start Date: 06/30/24 Status: Ordered Quantity: 90.0 Unit: tablet Repeat number: 4 topiramate 25 mg oral tablet 1 tablet = 25 mg, By Mouth, Daily at bedtime, Replaces previous prescription, # 90 tablet, 3 Refills, Maintenance, 09/24/24 6:06:00 AM EDT, Tablet, [facility]/pharmacy #[id number], Partial fill upon patient request if [...] 5 Refills, Maintenance, 01/24/24 4:25:00 PM EDT, [facility]/pharmacy #[id number], Partial fill upon patient request if [...] Team Personnel Name: Annetta Portillo RN Position: [facility] RN Member Role: Primary Care Nurse Name: Aries Sibley MD Position: [facility] Physician - Primary Care Member Role: PCP Address: [address] [place] [address]- Telecom: Name: Melissa Stevens RN Position: [facility] Nurse Member Role: Primary Care Nurse Name: Benjamin Ramirez RN Position: [facility] RN Member Role: Primary Care Nurse Care Team Related Persons Name: DEBORAH SEVERINO Name: SAÚL PEREZ Name: NANCI SANTIAGO Insurance Providers Guarantor name: ANITHA CHRIS Health Plan Information #: 1 Payer: MEDICARE PART B OUTPT Member Number: NA Policy Number: NA Group Number: NA Health Plan Information #: 2 Payer: [facility] Member Number: NA Policy Number: NA Group Number: NA
--- OUTSIDE RECORDS SUMMARY | 2024-09-23 12:02 | XMS_ITS | Clinical Summary ---
Author Organization [facility] Address [address] [place] [phone] Phone Care Team Providers Care Critical Power Technician Name Role Phone Aries Sibley MD Primary Care Provider [phone] Allergies Active Allergy Reactions Criticality Noted Date Comments Cephalexin 06/14/2022 Fluticasone 06/06/2018 Gabapentin 06/14/2022 Indomethacin 06/06/2018 Lisinopril 06/06/2018 Sulfa (Sulfonamide Antibiotics) 11/2017 Sulindac 06/06/2018 Tolmetin 06/06/2018 Medications acetaminophen (TYLENOL) 500 mg tablet Take by mouth every 6 hours as needed. Active ALPRAZolam (XANAX) 0.25 mg tablet Take 1 tablet (0.25 mg total) by mouth every night at bedtime as needed for anxiety. Active aspirin 81 mg EC tablet Take 1 tablet (81 mg total) by mouth 1 (one) time each day. Active calcium carbonate-vit D3-min 600 mg calcium- 400 unit tablet Take by mouth. Active cholecalciferol (VITAMIN D-3) 25 mcg (1,000 unit) capsule Take 2 capsules (2,000 Units total) by mouth. Active irbesartan (AVAPRO) 75 mg tablet Take 1 tablet (75 mg total) by mouth every night at bedtime. Active naproxen sodium (ANAPROX) 220 mg tablet Take 1 tablet (220 mg total) by mouth 2 (two) times a day with meals. Active romosozumab-aqq g (Evenity) Inject 2.34 mL (210 mg total) under the skin once. Active sertraline (ZOLOFT) 100 mg tablet Take 1 tablet (100 mg total) by mouth daily. 150 mg Active simvastatin (ZOCOR) 40 mg tablet Take 1 tablet (40 mg total) by mouth every night at bedtime. Active emollient combo no.112, bulk, (BIAFINE) cream Apply topically. Active levomefolate calcium (L-METHYFOLATE) 15 mg tablet Take by mouth. Active omega-3 fatty acids 1,000 mg capsule Take by mouth. Active multivitamin (MULTIPLE VITAMINS ORAL) Take by mouth. Active turmeric root extract 500 mg capsule Take by mouth. Active topiramate (TOPAMAX) 50 mg tablet Take 1 tablet (50 mg total) by mouth 1 (one) time each day. 04/19/2024 Active Active Problems Problem Noted Date Diagnosed Date Malignant neoplasm of overla pping sites of left female breast 06/07/2018 Encounters Date Type Department Care Team Description 07/14/2024 11:30 AM EST Office Visit [facility] Hematology Oncology [address] [place] [phone] Kitty Yanez PA Breast pain (Primary Dx); Night sweats; Malignant neoplasm of overlapping sites of left breast in female, estrogen receptor positive (CMS/HCC) 07/07/2024 Telephone [facility] Hematology Oncology [address] [place] [address] Donald Boggs MD from Last 3 Months Immunizations Name Administration Dates Next Due Channel [employer]lect (ages 12 & older) LUIS S-CoV-2 COVID-19, mRNA, LNP-S, taj-sucrose, preservative free 10/29/2021 Pfizer SARS-CoV-2 COVID-19, mRNA, LNP-S, preservative free 03/25/2023,04/03/2021,08/24/2020,2020 Surgical History Surgery Date Site/Laterality Comments TOTAL KNEE ARTHROPLASTY PROCEDURE:REPLACEMENT TOTAL KNEE BILATERAL;COMMENT:september and may 2018, [facility] Medical History Medical History Date Comments FHx: allergies DX:FHx: allergie s Hypercholesterolemia DX:Hypercho lesterolemia Depression DX:Depression Osteoporosis DX:Osteoporosis Insulin resistance DX:Insulin re sistance Breast cancer DX:Breast cancer (HCC) Social History Tobacco Use Types Packs/Day Years Used Date Smoking Tobacco: Never Smokeless Tobacco: Never Alcohol Use Standard Drinks/Week Comments Yes 1 (1 standard drink = 0.6 oz pur e alcohol) Comments Unknown Sex and Gender Information Value Date Recorded Sex Assigned at Not on file Legal Sex Female 10:31 PM EST Gender Identity Not on file Sexual Orientation Not on file Obstetrics History Last Filed Vital Signs Vital Sign Reading Time Taken Comments Blood Pressure 120/58 07/14/2024 11:38 AM EST Pulse 81 07/14/2024 11:38 AM EST Temperature 36.1 ??C (96.9 ??F) 07/14/2024 11:[address] Respiratory Rate - - Oxygen Saturation 99% 07/14/2024 11:38 AM EST Inhaled Oxygen Concentration - - Weight 78 kg (172 lb) 07/14/2024 11:38 AM EST Height 160 cm (5' 3 ) 12/14/2023 11:51 AM EDT Body Mass Index 30.47 12/14/2023 11:51 AM EDT Plan of Treatment Upcoming Encounters Date Type Department Care Team (Late st Contact Info) Description 12/15/2024 11:45 AM EDT Office Visit [facility] Hematology Oncology [address] [place] [phone] Donald Boggs MD [address] [place] [phone] Health Maintenance Due Date Last Done Comments Pneumococcal Vaccine: 50+ Years (3 of 3 - PPSV23, PCV20 or PCV21) 04/09/2015 02/12/2015, 05/02/2003 Cholesterol Screening (Lipid Panel) 06/10/2022 Depression Screening 06/10/2022 Falls Risk Assessment 06/10/2022 Osteoporosis Screening (Bone Density Screening) 06/10/2022 Social Influencers of Health Screening 06/10/2022 DTaP,Tdap,and Td Vaccines (3 - Td or Tdap) 10/28/2022 10/28/2012, 04/02/2002 Medicare Annual Wellness Visit 05/01/2023 05/01/2022 Hypertension/CHF/CAD Annual BMP Blood Test 07/14/2025 07/14/2024 Zoster Vaccines Completed 12/28/2018, 11/30, 09/09/2018, Additional history exists COVID-19 Vaccine Completed 03/02/2024, , 10/22/2022, Additional history exists Influenza Vaccine Completed 03/02/2024, , 04/28/2022, Additional history exists RSV Immunization Patients 60+ Years Old Completed 03/02/2024 HIB Vaccines Aged Out No longer eligi ble based on patient's age to complete this topic HPV Vaccines Aged Out No longer eligi ble based on patient's age to complete this topic Hepatitis A Vaccines Aged Out No long er eligible based on patient's age to complete this topic Hepatitis B Vaccines Aged Out No long er eligible based on patient's age to complete this topic IPV Vaccines Aged Out No longer eligi ble based on patient's age to complete this topic MMR Vaccines Aged Out No longer eligi ble based on patient's age to complete this topic Meningococcal ACWY Vaccine Aged Out N o longer eligible based on patient's age to complete this topic Meningococcal B Vacine Aged Out No lo nger eligible based on patient's age to complete this topic RSV Immunization Patients Under 20 months Aged Out No longer eligible based on patient's age to complete this topic Varicella Vaccines Aged Out No longer eligible based on patient's age to complete this topic Procedures Procedure Name Priority Date/Time Associated Diagnosis Comments CBC WITH AUTO DIFFERENTIAL Routine 07/14/2024 1:04 PM EST Breast pain Night sweats CBC AND DIFFERENTIAL Routine 07/14/2024 1:04 PM EST Breast pain Night sweats COMPREHENSIVE METABOLIC PANEL Routine 07/14/2024 1:04 PM EST Breast pain Night sweats THYROID STIMULATING HORMONE WITH REFLEX TO FREE T4 AND FREE T3 Routine 07/14/2024 1:04 PM EST Breast pain Night sweats from Last 3 Months Results * Thyroid stimulating hormone with reflex to free t4 and free t3 (07/14/2024 1:04 PM EST) TSH 1.71 0.40 - 4.00 mcIU/mL LAB CHEMISTRY METHOD 07/14/2024 4:13 PM EST [facility] Blood Venous blood specimen / Unknown Venipuncture / Unknown 07/14/2024 1:04 PM EST 07/14/2024 1:10 PM EST us Kitty BHATIA LAB BLOOD ORDERABLES Final Resul t [facility] [address] [place] [address], [place] [phone] * CBC auto differential (07/14/2024 1:04 PM EST) [facility] WBC 6.5 4.8 - 10.8 K/mcL LAB HEMETOLOGY METHOD 07/14/2024 2:06 PM [facility] RBC 4.40 3.80 - 4.80 M/mcL LAB HEMETOLOGY METHOD 07/14/2024 2:06 PM [facility] Hemoglobin 13.5 11.5 - 16.0 g/dL LAB HEMETOLOGY METHOD 07/14/2024 2:06 PM [facility] Hematocrit 41.4 35.0 - 47.0 % LAB HEMETOLOGY METHOD 07/14/2024 2:06 PM [facility] MCV 93.7 79.0 - 98.0 FL LAB HEMETOLOGY METHOD 07/14/2024 2:06 PM [facility] MCH 30.5 27.0 - 32.0 pcg LAB HEMETOLOGY METHOD 07/14/2024 2:06 PM [facility] MCHC 32.6 32.0 - 37.0 g/dL LAB HEMETOLOGY METHOD 07/14/2024 2:06 PM [facility] RDW 13.8 11.0 - 15.0 % LAB HEMETOLOGY METHOD 07/14/2024 2:06 PM [facility] Platelets 223 130 - 400 K/mcL LAB HEMETOLOGY METHOD 07/14/2024 2:06 PM [facility] MPV 9.9 7.0 - 11.0 FL LAB HEMETOLOGY METHOD 07/14/2024 2:06 PM [facility] NRBC 0.0 <1.0 % LAB HEMETOLOGY METHOD 07/14/2024 2:06 PM [facility] NRBC Absolute 0.00 <0.10 K/mcL LAB HEMETOLOGY METHOD 07/14/2024 2:06 PM [facility] Neutrophils Relative 65.5 % LAB HEMETOLOGY METHOD 07/14/2024 2:06 PM [facility] Lymphocytes Relative 20.1 % LAB HEMETOLOGY METHOD 07/14/2024 2:06 PM [facility] Monocytes Relative 9.8 % LAB HEMETOLOGY METHOD 07/14/2024 2:06 PM [facility] Eosinophils Relative 2.8 % LAB HEMETOLOGY METHOD 07/14/2024 2:06 PM [facility] Basophils Relative 1.5 % LAB HEMETOLOGY METHOD 07/14/2024 2:06 PM [facility] Immature Granulocytes Relative 0.3 % LAB HEMETOLOGY METHOD 07/14/2024 2:06 PM [facility] Neutrophils Absolute 4.27 1.50 - 7.00 K/mcL LAB HEMETOLOGY METHOD 07/14/2024 2:06 PM [facility] Lymphocytes Absolute 1.31 1.00 - 5.00 K/mcL LAB HEMETOLOGY METHOD 07/14/2024 2:06 PM [facility] Monocytes Absolute 0.64 0.20 - 1.00 K/mcL LAB HEMETOLOGY METHOD 07/14/2024 2:06 PM [facility] Eosinophils Absolute 0.18 0.00 - 0.50 K/mcL LAB HEMETOLOGY METHOD 07/14/2024 2:06 PM [facility] Basophils Absolute 0.10 0.00 - 0.20 K/mcL LAB HEMETOLOGY METHOD 07/14/2024 2:06 PM [facility] Immature Granulocytes Absolute 0.02 0.00 - 0.03 K/mcL LAB HEMETOLOGY METHOD 07/14/2024 2:06 PM [facility] Blood Venous blood specimen / Unknown Venipuncture / Unknown 07/14/2024 1:04 PM EST 07/14/2024 1:09 PM EST us Kitty BHATIA LAB BLOOD ORDERABLES Final Resul t [facility] [address] [place] [address], * Comprehensive metabolic panel (07/14/2024 1:04 PM EST) Sodium 138 133 - 145 mmol/L LAB CHEMISTRY METHOD 07/14/2024 4:35 PM [facility] Potassium 4.1 3.5 - 5.5 mmol/L LAB CHEMISTRY METHOD 07/14/2024 4:35 PM [facility] Chloride 104 96 - 110 mmol/L LAB CHEMISTRY METHOD 07/14/2024 4:35 PM [facility] CO2 27 21 - 32 mmol/L LAB CHEMISTRY METHOD 07/14/2024 4:35 PM [facility] Anion Gap 7 3 - 11 LAB CHEMISTRY METHOD 07/14/2024 4:35 PM [facility] Glucose 90 70 - 100 mg/dL LAB CHEMISTRY METHOD 07/14/2024 4:35 PM [facility] BUN 16 5 - 25 mg/dL LAB CHEMISTRY METHOD 07/14/2024 4:35 PM [facility] Creatinine 0.69 0.50 - 1.10 mg/dL LAB CHEMISTRY METHOD 07/14/2024 4:35 PM [facility] eGFR 88 >=60 mL/min/1. 73m2 LAB CHEMISTRY METHOD 07/14/2024 4:35 PM [facility] Comment:Calculation based on the??Chronic Kidney Disease Epidemiology Collaboration (CKD-EPI) equation refit??without adjustment for race. BUN/Creatinine Ratio 23.2 LAB CHEMISTRY METHOD 07/14/2024 4:35 PM [facility] Calcium 9.2 8.5 - 10.5 mg/dL LAB CHEMISTRY METHOD 07/14/2024 4:35 PM [facility] AST (SGOT) 18 10 - 42 unit/L LAB CHEMISTRY METHOD 07/14/2024 4:35 PM [facility] ALT (SGPT) 24 10 - 60 unit/L LAB CHEMISTRY METHOD 07/14/2024 4:35 PM [facility] Alkaline Phosphatase 81 42 - 121 unit/L LAB CHEMISTRY METHOD 07/14/2024 4:35 PM [facility] Total Protein 6.8 6.0 - 8.0 g/dL LAB CHEMISTRY METHOD 07/14/2024 4:35 PM [facility] Albumin 3.7 3.2 - 5.0 g/dL LAB CHEMISTRY METHOD 07/14/2024 4:35 PM [facility] Total Bilirubin 0.5 0.0 - 1.4 mg/dL LAB CHEMISTRY METHOD 07/14/2024 4:35 PM [facility] Blood Venous blood specimen / Unknown Venipuncture / Unknown 07/14/2024 1:04 PM EST 07/14/2024 1:10 PM EST us Kitty BHATIA LAB BLOOD ORDERABLES Final Resul t [facility] [address] [place] [address], [place] [phone] from Last 3 Months Insurance [employer] Care Teams Critical Power Technician Relationship Specialty Start Date End Date Aries Sibley MD [facility] [address] [place] [phone] PCP - General Family Medicine 06/07/18
--- OUTSIDE RECORDS SUMMARY | 2024-09-23 12:02 | XMS_ITS | Continuity of Care Document ---
Author Organization [facility] Address [address] [place] [address]- Care Team Providers Care Help Desk Manager Name Role Phone Maryjo COELLO, Aries Lauren Primary Care Physician Encounter [facility] Date(s): 08/19/24 - 09/18/24 [facility] Adult [address] [place] [address]- Encounter Type: Triage Allergies, Adverse Reactions, Alerts [...] vaccine, inactivated 6 04/12/08 Gi maddie SARS-CoV-2(COVID-19)mRNA-LNP vac([id number]) 03/02/24 Recorded SARS-CoV-2(COVID-19)mRNA-LNP vac([id number]) 03/25/23 Recorded [id number] bivalent booster vax 10/22/22 Recorded [id number] bivalent booster vax 03/13/22 Recorded SARS-CoV-2 mRNA ([id number]) vax 10/29/21 Recorded SARS-CoV-2 (COVID-19) mRNA BNT-162b2 [...] 4Result Comment: [04/10/2017] [facility] [id number] 5Location History: pharmacy 6Admin Note: nadia ceja 7Location History: [facility] 8Admin Note: Gave the VIS 07-25-2011 9Admin Note: Gave the VIS 01-01-2012 10[facility] 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 Medications acetaminophen 500 mg oral capsule 2 [...] Maintenance, 12/04/23 10:01:00 AM EDT, Tablet, [facility]/pharmacy #[id number], 153.5, cm, 12/04/23 9:36:00 EDT, [...] Refills, Maintenance, 01/25/24 4:45:00 AM EDT, [facility], 153.5, cm, 01/15/24 16:27:00 EDT, [...] Refills, Maintenance, 06/30/24 11:41:00 AM EST, Tablet, [facility], Partial fill upon patient request if [...] 11:48:00 AM EST, Route to Pharmacy Electronically, [facility], 161.2, cm, 06/30/24 11:17:00 EST, Height, 79, kg, 09/19/22 13:01:00 EDT, Dry Weight Start Date: 06/30/24 Status: Ordered Quantity: 90.0 Unit: tablet Repeat number: 4 topiramate 25 mg oral tablet 1 tablet = 25 mg, By Mouth, Daily at bedtime, Replaces previous prescription, # 90 tablet, 3 Refills, Maintenance, 09/24/24 6:06:00 AM EDT, Tablet, [facility]/pharmacy #[id number], Partial fill upon patient request [...] Refills, Maintenance, 01/24/24 4:25:00 PM EDT, [facility]/pharmacy #[id number], Partial fill upon patient request [...] Team Personnel Name: Annetta Portillo RN Position: [facility] RN Member Role: Primary Care Nurse Name: Aries Sibley MD Position: [facility] Physician - Primary Care Member Role: PCP Address: [address] [place] [address]- Telecom: Name: Melissa Stevens RN Position: [facility] Nurse Member Role: Primary Care Nurse Name: Benjamin Ramirez RN Position: [facility] RN Member Role: Primary Care Nurse Care Team Related Persons Name: DEBORAH SEVERINO Name: SAÚL PEREZ Name: NANCI SANTIAGO Insurance Providers Guarantor name: ANITHA CHRIS Health Plan Information #: 1 Payer: MEDICARE PART B OUTPT Member Number: NA Policy Number: NA Group Number: NA Health Plan Information #: 2 Payer: [facility] Member Number: NA Policy Number: NA Group Number: NA
== END 2024-09-22 09:46 | disposition home or self-care (01) ==
LOC: HO.HAP 09:45
PROVIDERS: Visit Provider Family Medicine
DX: Z46.1 Encounter for fitting and adjustment of hearing aid (principal)
CPT/HCPCS: V5267

== ENCOUNTER 2024-09-26 15:08 | Outpatient (REF) | payer SELFPAY | END 2024-09-26 15:09 | disposition home or self-care (01) | LOC: HO.HAP 15:08 | PROVIDERS: Visit Provider Family Medicine | DX: Z46.1 Encounter for fitting and adjustment of hearing aid (principal); H90.3 Sensorineural hearing loss, bilateral | CPT/HCPCS: V5267 ==